=== PATIENT | male | born 1955 | race Caucasian/White ===

== ENCOUNTER → 2020-08-31 | Outpatient (CLI) | payer OTHER ==
--- NOTE | 2020-09-01 04:26 | MR ---
EXAMINATION TYPE: MR liver wo/w con DATE OF EXAM: 08/31/2020 COMPARISON: None HISTORY: Kidney mass with liver mass, history of low back pain. CONTRAST: Standard multiplanar, multisequence MRI departmental protocol utilizing 10 mL intravenous Gadavist ga dolinium contrast. There are multiple cysts in the liver that measure up to 2.6 cm. The bile ducts are not dilated. Sple en is intact. The pancreatic duct appears normal. There is no evidence of pancreatic mass. The stomac h is intact. Gallbladder is partly contracted. There is no evidence of a solid liver mass. There is no adrenal mass. There is a 9 cm lobulated mass at the lower pole cortex of the right kidney. This has multiple lobule s and mildly enhancing. There is central area of decreased signal that could be a central scar. Centr al component does not enhance. The margins are sharp. The remainder of the kidneys appear normal. The re is no hydronephrosis. Ureters are not dilated. There is no retroperitoneal adenopathy. The lumbar spine appears intact. There is no evidence of pleural effusion. There is no ascites. There is no evidence of a bowel obstruction. There is normal enhancement of the inferior vena cava and the portal venous system. Renal veins appear patent. 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 Renal cell cancer is in the differential diagnosis. Multiple simple hepatic cysts.
== END | disposition home or self-care (01) ==
LOC: RADMRIMAIN 19:51
PROVIDERS: ATTEND Urology
DX: N28.89 Other specified disorders of kidney and ureter (principal); K76.89 Other specified diseases of liver
CPT/HCPCS: 74183; A9585

== ENCOUNTER → 2020-09-12 | Outpatient (CLI) | payer OTHER ==
--- NOTE | 2020-09-12 11:04 | CT ---
EXAMINATION TYPE: CT chest w con DATE OF EXAM: 09/12/2020 COMPARISON: MRI liver 08/31/2020 HISTORY: recent diagnosis of Rt renal mass CT DLP: 705 mGycm, Automated exposure control for dose reduction was used. CONTRAST: Performed injected with 80 mL of Isovue 300. TECHNIQUE: Axial images were obtained at 5 mm thick sections. Reconstructed images are reviewed on [facility] computer in the coronal plane. FINDINGS: Portion of the thyroid visualized is normal. No suspicious lung nodules or focal infiltrates are present. No enlarged mediastinal or hilar adenopathy is evident. The ascending aorta diameter at the level o f the main pulmonary artery is 2.8 cm. The main pulmonary artery diameter at the bifurcation is 2.[address] sections are obtained through the upper abdomen. There is moderate fatty infiltration of t liver. There is a peripherally enhancing area measuring 2.2 cm anterior medial right lobe liver ca n be a hemangioma. Subtle 1.7 cm hypodensity is along the subcortical right lobe liver. Series 3 imag e 62. These can be compatible with hemangioma, although not conclusively diagnostic based on the CT a lone. The patient's known renal masses out of the [id number]. Osseous structures features appear normal. IMPRESSIONS: 1. No suspicious changes to suggest metastatic disease within the chest. 2. There are couple of ill-defined hypodensities within the liver, present on the MRI, which may be h emangiomas.
== END | disposition home or self-care (01) ==
LOC: RADCTMAIN 09:42
PROVIDERS: ATTEND Urology
DX: N28.89 Other specified disorders of kidney and ureter (principal); R93.2 Abnormal findings on diagnostic imaging of liver and biliary tract
CPT/HCPCS: 82565; 84520; 71260; 36415; Q9967

== ENCOUNTER → 2020-09-14 | Outpatient (CLI) | payer OTHER ==
[2020-09-14 10:28] LABS: Basophils % (A) 0 %; Eosinophils # (A) 0.1 k/uL (0-0.7); Eosinophils % (A) 2 %; HCT 40.7 % (39.0-53.0); HGB 14.2 gm/dL (13.0-17.5); Lymphocytes # (A) 1.2 k/uL (1.0-4.8); Lymphocytes % (A) 28 %; MCH 30.1 pg (25.0-35.0); MCHC 34.8 g/dL (31.0-37.0); MCV 86.5 fL (80.0-100.0); Mean Platelet Volume 8.2; Monocytes # (A) 0.3 k/uL (0-1.0); Monocytes % (A) 6 %; Neutrophils # (A) 2.7 k/uL (1.3-7.7); Neutrophils % (A) 62 %; Platelet Count 173 k/uL (150-450); RBC 4.71 m/uL (4.30-5.90); RDW 12.9 % (11.5-15.5); WBC 4.4 k/uL (3.8-10.6)
[2020-09-14 10:43] LABS: Calcium 9.8 mg/dL (8.4-10.2); Potassium 4.5 mmol/L (3.5-5.1)
== END | disposition home or self-care (01) ==
LOC: LABPAT 09:52
PROVIDERS: ATTEND Urology
DX: Z01.812 Encounter for preprocedural laboratory examination (principal); D41.01 Neoplasm of uncertain behavior of right kidney
CPT/HCPCS: 36415; 80048; 85025

== ENCOUNTER 2020-09-20 | Day surgery (SDC) | payer OTHER | END 2020-09-21 16:04 | disposition home or self-care (01) | DX: C64.1 Malignant neoplasm of right kidney, except renal pelvis (principal); Z20.822 Contact with and (suspected) exposure to COVID-19; Z79.82 Long term (current) use of aspirin; Z79.899 Other long term (current) drug therapy | CPT/HCPCS: 50545; S2900; 64999; 80048; 85610; 86850; 86900; 86901; 87635; 88307; 88341; 88342; 94760 ==

== ENCOUNTER → 2021-03-27 | Outpatient (CLI) | payer OTHER ==
--- NOTE | 2021-03-27 16:38 | CT ---
EXAMINATION TYPE: CT abdomen pelvis wo con DATE OF EXAM: 03/27/2021 COMPARISON: None INDICATION: h/o right renalectomy f/u DLP: 1103 mGycm, Automated exposure control for dose reduction was used. CONTRAST: 0 mL of Isovue 300. Study performed without Oral Contrast TECHNIQUE: Axial images were obtained from above the diaphragm to the pubic rami in the axial plane a t 5 mm thick sections. Reconstructed images are reviewed on the computer in the coronal plane. FINDINGS: Limited CT sections are obtained the lung bases. The lung bases are clear. CT ABDOMEN: Liver: Normal Spleen: Normal Pancreas: Normal Adrenal glands: The adrenal glands are normal. Gallbladder: Normal Kidneys: There is been right nephrectomy. Surgical clips are present. No recurrent masses are identif ied. The left kidney appears normal without masses or cysts hydronephrosis or renal stones. Left uret er appears normal. Aorta: Minimal Vascular calcification is within the aorta. Inferior vena cava: Normal. CT PELVIS: Loops of bowel within the abdomen and pelvis are normal. Study is without oral contrast limiting bowel evaluation. Appendix: Not identified. No dilated tubular structures. Urinary bladder: Normal. Genitourinary structures: Prostate contains calcifications mild prominence. Osseous structures: No suspicious lytic or sclerotic lesions. Degenerative disc changes are evident. IMPRESSIONS: 1. No suspicious recurrent masses right renal bed.
--- NOTE | 2021-03-28 07:53 | XR ---
EXAMINATION TYPE: XR chest 2V DATE OF EXAM: 03/27/2021 COMPARISON: None HISTORY: 65-year-old male shortness of breath, hypertrophy of kidney TECHNIQUE: Frontal and lateral views FINDINGS: The cardiomediastinal silhouette, aorta, and pulmonary vasculature are within normal limits. Some [facility] atelectasis in the lower lungs. Otherwise, lungs and pleural spaces are clear. IMPRESSION: No acute cardiopulmonary process.
== END | disposition home or self-care (01) ==
LOC: RADCTMAIN 15:46
PROVIDERS: ATTEND Urology
DX: N28.81 Hypertrophy of kidney (principal); R06.02 Shortness of breath; Z90.5 Acquired absence of kidney
CPT/HCPCS: 71046; 74176

== ENCOUNTER → 2022-04-21 | Outpatient (CLI) | payer OTHER ==
--- NOTE | 2022-04-21 10:16 | XR ---
EXAMINATION TYPE: XR chest 2V DATE OF EXAM: 04/21/2022 10:07 AM COMPARISON: Chest radiographs from 03/27/2021. TECHNIQUE: XR chest 2V Frontal and lateral views of the chest. CLINICAL INDICATION:Male, 66 years old with history of C64.1; FINDINGS: Lungs/Pleura: There is no evidence of pleural effusion, focal consolidation, or pneumothorax. Pulmonary vascularity: Unremarkable. Heart/mediastinum: Cardiomediastinal silhouette is unremarkable. Musculoskeletal: Multiple level degenerative disc disease changes seen throughout the spine. No acute osseous abnormality. IMPRESSION: No acute cardiopulmonary disease/process. No significant change from prior examination.
--- NOTE | 2022-04-21 11:50 | CT ---
EXAMINATION TYPE: CT abdomen pelvis wo con DATE OF EXAM: 04/21/2022 HISTORY: FOLLOW UP RIGHT KIDNEY REMOVAL, HISTORY OF HERNIA CT DLP: 1145 mGycm. Automated Exposure Control for Dose Reduction was Utilized. TECHNIQUE: CT scan of the abdomen and pelvis is performed without oral or IV contrast. COMPARISON: Prior CT March 27, 2021 and MRI liver August 31, 2020 FINDINGS: Within the limitations of a non-contrast study, the following observations are made. LUNG BASES: No significant abnormality is appreciated. LIVER: There is 2.9 cm heterogeneous hypodense lesion anterior left hepatic lobe axial image 38 and 3 .7 cm lesion anterior right hepatic lobe axial image 40 redemonstrated. Findings correlate with heman giomas on MRI. Subcentimeter lesions on MRI less well seen on noncontrast CT PANCREAS: No significant abnormality is seen. SPLEEN: No significant abnormality is seen. ADRENALS: No significant abnormality is seen. KIDNEYS: Right sided total nephrectomy changes redemonstrated. No left-sided renal calculus or hydron ephrosis. BOWEL: Surgical changes from appendectomy at base of cecum. GENITAL ORGANS: Mildly enlarged prostate consistent with BPH is redemonstrated. LYMPH NODES: No new greater than 1cm abdominal or pelvic lymph nodes are appreciated. OSSEOUS STRUCTURES: Transitional type vertebra lumbosacral junction redemonstrated. OTHER: Small sized fat-containing umbilical hernia redemonstrated. IMPRESSION: Right-sided total nephrectomy changes redemonstrated. No suspicious new mass or adenopath y is seen on noncontrast CT to suggest neoplastic recurrence.
== END | disposition home or self-care (01) ==
LOC: RADCTMAIN 09:41
PROVIDERS: ATTEND Urology
DX: C64.1 Malignant neoplasm of right kidney, except renal pelvis (principal); Z90.5 Acquired absence of kidney
CPT/HCPCS: 71046; 74176

== ENCOUNTER → 2023-05-14 | Outpatient (CLI) | payer MEDICARE ==
--- NOTE | 2023-05-14 15:10 | CT ---
EXAMINATION TYPE: CT abdomen pelvis wo con DATE OF EXAM: 05/14/2023 COMPARISON: 04/21/2022 INDICATION: f/u partial nephrectomy DLP: 946 mGycm, Automated exposure control for dose reduction was used. CONTRAST: 0 mL of Isovue 300. Study performed without Oral Contrast TECHNIQUE: Axial images were obtained from above the diaphragm to the pubic rami in the axial plane a t 5 mm thick sections. Reconstructed images are reviewed on the computer in the coronal plane. FINDINGS: Limited CT sections are obtained the lung bases. The lung bases are clear. CT ABDOMEN: Liver: There is a curvilinear hypodense area near the ligamentum teres along the anterior margin of t he liver measuring 4.0 cm. Previous measurement 3.9 cm. This appears stable from comparison. There is an additional hypodense area within the anterior left lobe liver measuring 3.3 cm. Previous measurem ent 2.9 cm. Spleen: Normal Pancreas: Normal Adrenal glands: The adrenal glands are normal. Gallbladder: Normal Kidneys: Right kidney is surgically absent. No recurrent masses are in the right renal bed. Left kidn ey appears normal. No masses cysts or hydronephrosis evident. Aorta: Minimal Vascular calcification is within the aorta. Inferior vena cava: Normal. CT PELVIS: Loops of bowel within the abdomen and pelvis are normal. The study is performed without oral cont rast limiting bowel evaluation. Appendix: Not identified. No dilated tubular structure or inflammatory changes evident Urinary bladder: Normal. Genitourinary structures: Few scattered prostate calcifications are in the minimally prominent prosta te. Osseous structures: No suspicious lytic or sclerotic lesions. IMPRESSION: 1. No recurrent masses right renal bed or changes to suggest metastatic renal cancer. 2. Essentially stable appearing hypodensities within the liver.
--- NOTE | 2023-05-15 09:07 | XR ---
EXAMINATION TYPE: XR chest 2V DATE OF EXAM: 05/14/2023 COMPARISON: 04/21/2022 HISTORY: 67-year-old male C6 4.1 TECHNIQUE: Frontal and lateral views FINDINGS: The cardiomediastinal silhouette, aorta, and pulmonary vasculature are within normal limits. Lungs an d pleural spaces are clear. IMPRESSION: No acute cardiopulmonary process.
== END | disposition home or self-care (01) ==
LOC: RADCTMAIN 10:26
PROVIDERS: ATTEND Urology
DX: C64.1 Malignant neoplasm of right kidney, except renal pelvis (principal); Z90.5 Acquired absence of kidney
CPT/HCPCS: 71046; 74176